=== PATIENT | male | born 1985 | race Caucasian/White ===

== ENCOUNTER 2025-01-29 18:50 | Outpatient (CLI) | payer OTHER, SELFPAY ==
--- NOTE | 2025-01-29 19:00 | CRLHL7_ITS ---
For Patients: As a result of the Century Cures Act, medical imaging exams and procedure reports are released immediately into your electronic medical record. You may view this report before your referring provider. If you have questions, please contact your health care provider. Indication: Left-sided numbness and tingling. Technique: Multiplanar multisequence noncontrast MR images of the cervical spine. Comparison: None. Findings: Short-segment T2 hyperintense signal abnormality within the left cervicomedullary junction, right hemicord at C2-3, and right dorsal cord at C6-7. The cervical lordosis is maintained. Vertebral body heights are preserved. No acute fracture or spondylolisthesis. No T1 hypointense lesions or marrow edema. Shallow annular bulging from C3-4 through C6-7. No spinal canal or neural foraminal stenosis. Impression: Multifocal signal abnormality in the cervical cord, concerning for sequela of demyelinating disease such as multiple sclerosis. Follow-up contrast-enhanced MR imaging could assess for the possibility of recent demyelination. Dictated by Julian James MD @ 01/29/2025 8:43:40 PM (Electronically Signed)
--- NOTE | 2025-01-29 19:45 | CRLHL7_ITS ---
For Patients: As a result of the Century Cures Act, medical imaging exams and procedure reports are released immediately into your electronic medical record. You may view this report before your referring provider. If you have questions, please contact your health care provider. Indication: Left-sided numbness and tingling. Technique: Multiplanar multisequence noncontrast MR images of the brain. Comparison: None. Findings: The ventricles and sulci are within normal limits for patient age. No mass effect or midline shift. Small FLAIR hyperintense, T1 hypointense lesions within the deep right pericallosal white matter (series 4, image 28) and left corpus callosum splenium (series 4, image 23). No intracranial hemorrhage or pathologic extra-axial fluid collection. No diffusion restriction to suggest acute infarction. Small right retrocerebellar arachnoid cyst. The major arterial flow voids of the skull base are preserved. Globes are symmetric. Paranasal sinuses are well aerated. Mastoid air cells are clear. Impression: 1. Two small lesions in the supratentorial white matter, concerning for sequelae of demyelinating disease such as multiple sclerosis. Follow-up contrast-enhanced MR imaging could assess for the possibility of recent demyelination. Dictated by Julian James MD @ 01/29/2025 8:40:26 PM (Electronically Signed)
== END 2025-01-29 18:51 | disposition home or self-care (01) ==
LOC: MRI 18:51
PROVIDERS: PCP Family Medicine; Visit Provider Family Medicine
DX: R29.898 Other symptoms and signs involving the musculoskeletal system (principal); G93.9 Disorder of brain, unspecified; M50.21 Other cervical disc displacement, high cervical region; M50.221 Other cervical disc displacement at C4-C5 level; M50.222 Other cervical disc displacement at C5-C6 level; M50.223 Other cervical disc displacement at C6-C7 level; R20.0 Anesthesia of skin; R20.2 Paresthesia of skin; R51.9 Headache, unspecified
CPT/HCPCS: 70551; 72141

== ENCOUNTER 2025-02-17 08:10 | Outpatient (CLI) | payer OTHER, SELFPAY | END 2025-02-17 08:11 | disposition home or self-care (01) | LOC: NFLDREF 02-18 05:59 | PROVIDERS: PCP Family Medicine; Referring Provider Family Medicine; Visit Provider Family Medicine | DX: R53.83 Other fatigue (principal); R20.0 Anesthesia of skin; R20.2 Paresthesia of skin; Z13.220 Encounter for screening for lipoid disorders; Z13.21 Encounter for screening for nutritional disorder; Z13.29 Encounter for screening for other suspected endocrine disorder | CPT/HCPCS: 80053; 80061; 82607; 84443 ==

== ENCOUNTER 2025-08-22 07:37 | Outpatient (CLI) | payer OTHER, SELFPAY | END 2025-08-22 07:38 | disposition home or self-care (01) | LOC: NFLDREF 08-30 03:11 | PROVIDERS: PCP Family Medicine; Referring Provider Family Medicine; Visit Provider Family Medicine | DX: E78.2 Mixed hyperlipidemia (principal); R73.03 Prediabetes; G37.9 Demyelinating disease of central nervous system, unspecified; E66.01 Morbid (severe) obesity due to excess calories; Z68.43 Body mass index [BMI] 50.0-59.9, adult | CPT/HCPCS: 80061; 82306 ==